=== PATIENT | male | born 1935 | race Caucasian/White ===

== ENCOUNTER 2017-05-22 19:30 | Emergency (ER) | payer MEDICARE | END 2017-05-22 23:35 | disposition home or self-care (01) | LOC: EDBD 19:30 → ER 19:30 | DX: M54.2 Cervicalgia (principal); R20.0 Anesthesia of skin; J44.9 Chronic obstructive pulmonary disease, unspecified; I10 Essential (primary) hypertension; F17.210 Nicotine dependence, cigarettes, uncomplicated; M51.36 Other intervertebral disc degeneration, lumbar region; M50.30 Other cervical disc degeneration, unspecified cervical region; Z88.6 Allergy status to analgesic agent | CPT/HCPCS: 70450; 72040; 72100; 96372; 99283; 99284-25 ==